=== PATIENT | female | born 1995 | race Caucasian/White ===

== ENCOUNTER 2018-05-16 06:54 | Day surgery (SDC) | payer OTHER ==
[~2018-05-16] VITALS: Ht 157.5 cm; Wt 80.1 kg
[2018-05-16] VITALS (12 sets, daily range): BP systolic 98–126; BP diastolic 57–81; PULSE 68–98; RESP 12–21; Ht 157.5 cm; Wt 80.1 kg
--- NOTE | 2018-05-16 08:59 | HPN ---
Date/Time of Note Date/Time of Note DATE: 05/16/18 TIME: 08:58 Interval H&P Admission Note Pt. seen H&P reviewed: No system changes YAYO VILLAFUERTE MD May 16, 2018 08:59
[2018-05-16] MEDS ORDERED: LIDOCAINE 1%/EPI 30 ML INJ ONE (09:08)
[2018-05-16] MEDS ORDERED: BACITRACIN/POLYMYXIN 28.35 GM OINT TOP ONE (09:08)
[2018-05-16] MEDS ORDERED: PHENYLephrine 0.5% 15 ML NAS SPRAY ONE (09:09)
--- NOTE | 2018-05-16 09:17 | PREAC ---
Date/Time of Note Date/Time of Note DATE: 05/16/18 TIME: 09:15 Anesthesia Eval and Record Evaluation Time Pre-Procedure Interview DATE: 05/16/18 TIME: 09:15 Age 22 Sex female NPO: 8 hrs Preoperative diagnosis Nasal Bones Fracture septal Deviation Planned procedure Septoplasty, Turbinate Reduction Past Medical History Past Medical History: None Surgery & Anesthesia Issues No known issue Meds Anticoagulation: No Beta Mindy within 24 hr: No Reason Beta Mindy not given: Pt. not on B-Mindy No Active Prescriptions or Reported Meds Meds reviewed: Yes Allergies Coded Allergies: No Known Allergy (Unverified , 05/16/18) Allergies Reviewed: Yes Labs/Studies Labs Reviewed: Reviewed by anesthesiologist test: Negative Studies: ECG (NSR), CXR (n/a) Pre-procedure Exam Last vitals Vital Signs Date Temp Pulse Resp B/P (MAP) Pulse Ox O2 O2 Flow FiO2 Time Delivery Rate 05/16/18 96.7 81 16 110/57 95 Room Air 08:03 (74) Airway: Adequate mouth opening, Adequate thyromental dist Mallampati: Mallampati II Teeth: Normal Lung: Normal Heart: Normal ASA Physical Status ASA physical status: 1 Emergency: None Planned Anesthetic General/MAC: ETT Planned Pain Management Parenteral pain med Pre-operative Attestations Prior to commencing anesthesia and surgery, the patient was re-evaluated, there was verification of: *The patient's identity *The results of appropriate recent lab work and preoperative vital signs *The above evaluation not changing prior to induction *Anesthetic plan, risk benefits, alternative and complications discussed with patient/family; questions answered; patient/family understands, accepts and wishes to proceed. PITER ALLRED MD May 16, 2018 09:17
[2018-05-16] MEDS ORDERED: MIDAZOLAM 1 MG/ML 2 ML INJ ONE (09:19)
[2018-05-16] MEDS ORDERED: FENTAnyl 50 MCG/ML VIAL ONE (09:19)
[2018-05-16] MEDS ORDERED: CEFAZOLIN 1 GM INJ ONE (09:19)
[2018-05-16] MEDS ORDERED: ONDANSETRON 4 MG INJ ONE (09:19)
[2018-05-16] MEDS ORDERED: ROCURONIUM 50 MG INJ ONE (09:19)
[2018-05-16] MEDS ORDERED: METOCLOPRAMIDE 10 MG INJ ONE (09:19)
[2018-05-16] MEDS ORDERED: PROPOFOL 20 ML ONE (09:19)
[2018-05-16] MEDS ORDERED: KETOROLAC 30 MG INJ ONE (09:20)
[2018-05-16] MEDS ORDERED: DEXAMETHASONE 4 MG/ML 5 ML INJ ONE (09:20)
[2018-05-16] MEDS ORDERED: METOCLOPRAMIDE 10 MG INJ IV PRN (09:30)
[2018-05-16] MEDS ORDERED: LABETALOL HCL 20MG INJ IV PRN (09:30)
[2018-05-16] MEDS ORDERED: FENTAnyl 50 MCG/ML VIAL IV PRN ×3 (09:30)
[2018-05-16] MEDS ORDERED: MEPERIDINE 25 MG INJ IV PRN (09:30)
[2018-05-16] MEDS ORDERED: DIPHENHYDRAMINE 50 MG INJ IV PRN (09:30)
[2018-05-16] MEDS ORDERED: OXYCODONE/ACETAMINOPHEN (5/325) TAB PO PRN (09:30)
[2018-05-16] MEDS ORDERED: HYDROmorphONE 1 MG/5 ML IV SYRINGE IV PRN ×3 (09:30)
[2018-05-16] MEDS ORDERED: ONDANSETRON 4 MG INJ IV PRN (09:30)
[2018-05-16] MEDS ORDERED: EPHEDrine SULFATE 50 MG/5 ML SYG IV PRN (09:30)
[2018-05-16] MEDS ORDERED: NEOSTIGMINE 3 MG/3 ML SYRINGE ONE (09:51)
[2018-05-16] MEDS ORDERED: GLYCOPYRROLATE 0.4 MG INJ ONE (09:51)
--- NOTE | 2018-05-16 10:03 | SIPON ---
Date/Time of Note Date/Time of Note DATE: 05/16/18 TIME: 10:02 Operative Report Preoperative Diagnosis 1. Deviated septum 2. Turbinate hypertrophy 3. Nasal valve dysfunction Postoperative Diagnosis Same Operation/Procedure Performed 1. Septoplasty 2. Nasal valve repair 3. Inferior turbinate reduction 4. [place] of septal cartilage Surgeon see signature line business banking sales assistant None Anesthesia: general Estimated blood loss: minimal Transfusion Required none Specimen Nasal septum Grafts/Implants none Complications none YAYO VILLAFUERTE MD May 16, 2018 10:03
--- NOTE | 2018-05-16 10:07 | PAC ---
Date/Time of Note Date/Time of Note DATE: 05/16/18 TIME: 10:06 Post-Anesthesia Notes Post-Anesthesia Note Last documented vital signs Vital Signs Date Temp Pulse Resp B/P (MAP) Pulse Ox O2 O2 Flow FiO2 Time Delivery Rate 05/16/18 96.7 81 16 110/57 95 Room Air 10:03 (74) Activity: WNL Respiratory function: WNL Cardiovascular function: WNL Mental status: Baseline Pain reasonably controlled: Yes Hydration appropriate: Yes Nausea/Vomiting absent: Yes PITER ALLRED MD May 16, 2018 10:06
--- NOTE | 2018-05-16 10:10 | OPR ---
Date/Time of Note Date/Time of Note DATE: 05/16/18 TIME: 10:03 Operative Report Procedure Date: May 16, 2018 Preoperative Diagnosis 1. Nasal valve dysfunction 2. Deviated septum 3. Inferior turbinate hypertrophy Postoperative Diagnosis Same Operation/Procedure Performed 1. Nasal valve repair 2. Septoplasty 3. Inferior turbinate reduction 4. [place] of septal cartilage Surgeon see signature line Cloth Spreader None Anesthesia Type: general Estimated Blood Loss: minimal Transfusion none Specimen Nasal septum Grafts/Implants none Complications none Pt Condition Post Procedure: stable Disposition: PACU Indications 22-year-old female with a history of chronic nasal obstruction that has been refractory to medical management. The risks, benefits, and alternatives of surg hina were discussed with the patient. Risks included but not limited to bleeding, infection, scar, need for further surgery, failure to improve symptoms, empty nose syndrome, septal perforation and pain. She understood this and signed consent. Procedure Description After informed consent was obtained, the patient was brought back to operating suite. She was intubated by anesthesia and sedated. The nose was prepped and draped in the usual sterile fashion. 1% lidocaine with epinephrine was injected into the nasal septum and inferior turbinates. A 15 blade was used to make a left simon-transfixion incision. A left mucoperichondrial flap was elevated. The bony cartilaginous junction was disarticulated. A deviated portion of the vomer bone was removed with the Carlos forceps. The inferior quadrangular cartilage was deviated to the right nasal cavity and removed. Care was taken to leave a 1-1/2 cm caudal strut untouched. A 6 x 15 mm piece of quadrangular cartilage was also removed from the central portion of the cartilage. This was carved into 2 2 x 15 mm grafts for cloth presser grafting. A stab incision was made bilaterally in front of both nasal valve regions. A Turner elevator was used to make a snug pocket between the upper lateral cartilage and the dorsal septum. The cloth presser graft was then tightly placed within this pocket. The incisions were closed with 4-0 chromic suture. The hemitransfixion incision was then closed with 4-0 chromic suture. A stab incision was then made under the heads of both inferior turbinates. Mucoperiosteal flaps were elevated. Inferior turbinate bone was removed with Carlos forceps. Bipolar cautery was applied were needed. Silastic Contreras splints coated in antibiotic ointment were placed bilaterally and secured with a 3-0 Prolene suture. The stomach was then suctioned with an orogastric tube. The patient was extubated and brought to the recovery room in stable condition. YAYO VILLAFUERTE MD May 16, 2018 10:10
--- NOTE | 2018-05-16 12:04 | RADRPT ---
Vent Rate: 73 bpm RR Interval: 0 msec HI Interval: 120 msec QRS Duration: 76 msec QT Interval: 370 msec QTC Interval: 407 msec P-R-T [place]: 60 - 63 - 41 degrees Normal sinus rhythm Normal ECG Electronically Signed By: Rogers Belrtan [id number]
== END 2018-05-16 12:20 | disposition home or self-care (01) ==
LOC: SDS 06:54
PROVIDERS: ATTEND Otolaryngology
DX: J34.2 Deviated nasal septum (principal); J34.3 Hypertrophy of nasal turbinates; J34.89 Other specified disorders of nose and nasal sinuses
CPT/HCPCS: 20912; 30465; 30520; 30930; 88300; 93005; J0690; J1100; J1885; J2250; J2405; J2710; J2765; J3010; Z7512; Z7610

== ENCOUNTER 2018-05-16 18:28 | Emergency (ER) | payer SELFPAY ==
[~2018-05-16] VITALS: Wt 81.4 kg
[2018-05-16 18:40] VITALS: BP 133/77; PULSE 106; RESP 18
== END 2018-05-16 20:00 | disposition left against medical advice (07) ==
LOC: E/R 18:28
DX: Z53.21 Procedure and treatment not carried out due to patient leaving prior to being seen by health care provider (principal)